=== PATIENT | female | born 1995 | race Caucasian/White ===

== ENCOUNTER 2018-08-12 17:06 | Inpatient (IN) | payer OTHER, MEDICAID ==
[~2018-08-12] VITALS: Ht 175.3 cm; Wt 70.3 kg
[~2018-08-12 17:06] MED LIST: ACE3 PO; ACET-1966 PO; Benzocaine 60 ML TP; CALC-521 PO; DOCU240C67 PO; FAMO20TA28 PO; IBUP800T37 PO; Lanolin TP; PNV91TAB3; TUCKS TOP
[2018-08-12] MEDS ORDERED: FAMOTIDINE(*) 20MG/50ML PREMIX 50 ML IVPB PRN (17:09)
[2018-08-12] MEDS ORDERED: DLR(*) 1000 ML BAG 1,000 ML IV SCH (17:09)
[2018-08-12] MEDS ORDERED: OXYTOCIN 30 UNIT/D5LR 500 ML 500 ML IV PRN (17:09)
[2018-08-12] MEDS ORDERED: LIDOCAINE 1% LOCAL 300 MG/30ML INJ PRN (17:10)
[2018-08-12] MEDS ORDERED: FLUSH 10 ML SYR IVP PRN (17:10)
[2018-08-12] MEDS ORDERED: METOCLOPRAMIDE 10 MG/2 ML SDV IVP PRN (17:10)
[2018-08-12] MEDS ORDERED: fentaNYL CITR 100 MCG/2 ML AMP IVP PRN (17:10)
[2018-08-12] MEDS ORDERED: LIDOCAINE/SOD BICARB 8.4% SYR SC PRN (17:10)
--- NOTE | 2018-08-12 17:21 | History & Physical ---
History of Present Illness Age of Patient: 23 : 2 Para or TPAL: 1001 EDC per LMP: Aug 26, 2018 EDC per U/S: Aug 26, 2018 Estimated Gestational Age: 38.0 Chief Complaint painful uterine contractions History of Present Illness Ms. Soares is a 23yo at 38.0 with YADI of 08/26/2018, based on first trimester ultrasound who presents to labor and delivery with complaint of painful uterine contractions. She reports normal movements, denies leakage of fluid or vaginal bleeding. Denies GUZMÁN, RUQ pain, nausea/emesis, scotomata. No other complaints. Desires epidural. Antepartum Issues: 1. Rubella Equivocal, plans for PP vaccine 2. declined HIV testing antepartum 3. GBS negative History Patient's Blood Type: A Positive Rubella Status: Equivocal Group B Strep Screen: Negative Miscellaneous Screens/Cultures: HIV declined, Hep B SAg neg Obstetrical History: 04/2015 FT , female, 6'6", vaginal delivery, uncomplicated Past Medical History: 1. hayfever 2. 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 h/o LGSIL pap, HPV Allergies: Coded Allergies: No Known Drug Allergies (Unverified , 05/21/15) Social History: In a supportive relationship with father of the baby. Denies interpersonal violence. 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 No current T/E/D. Med Rec Home Meds Active Scripts [Lanolin] 7 GM OINT No Conflict Check, 0 GM TP PRN PRN for DISCOMFORT FOR NURSING MOTHERS for 10 Days, TUBE Prov:RY CARLSON MD 05/23/15 Ibuprofen (IBUPROFEN) 800 Mg Tablet, 800 MG PO Q8H@07,15,23 for 10 Days, TAB Prov:RY CARLSON MD 05/23/15 Glycerin/Witch Cyndi [place] (PREPARATION H) 1 Pkg Pad, 0 PKG TOP PRN PRN for PAIN for 10 Days, PAD Prov:RY CARLSON MD 05/23/15 Docusate Calcium (DOCUSATE CALCIUM) 240 Mg Capsule, 240 MG PO BID for 10 Days, CAPSULE Prov:RY CARLSON MD 05/23/15 [Benzocaine] 60 ML AERS No Conflict Check, 0 ML TP PRN PRN for PAIN for 10 Days, BOTTLE Prov:RY CARLSON MD 05/23/15 Acetaminophen/Codeine (TYLENOL #3 (OR EQUIV)) 1 Ea Tab, 1-2 EACH PO Q4H PRN for PAIN, #10 TAB Prov:RY CARLSON MD 05/23/15 Reported Medications Acetaminophen (TYLENOL) 325 Mg Tablet, 325 MG PO 05/21/15 Pnv95/Ferrous Fumarate/FA ( Caplet) 28 Mg Iron-800 Mcg Tablet 05/21/15 Review of Systems Constitutional: No Fever, No Weight Loss, No Weight Gain, No Chills, No Night Sweats, No Other Neurological: No Syncope, No Confusion, No Weakness, No Dizziness, No Slurred Speech, No Other Eyes: No Vision Change, No Loss of Vision, No Photophobia, No Other ENT: No Hearing Loss, No Sinus Congestion, No Sore Throat, No Ear Ache, No Tinnitus, No Other Cardiovascular: No Chest Pain, No Palpitations, No Orthostatic Hypotension, No Other Respiratory: No Shortness of Breath, No Cough, No Wheezing, No Other Gastrointestinal: No Nausea, No Vomiting, No Diarrhea, No Dysphagia, No Constipation, No Early Satiety, No Hematemesis, No Hematochezia, No Melena, No Abdominal Pain, No Other Genitourinary: No Dysuria, No Hematuria, No Urinary Incontinence, No Other Musculoskeletal: No Pain, No Sprain, No Strain, No Impaired Mobility, No Other Psychiatric: No Depression, No Anxiety, No Other Exam General Exam Vital Signs Initial BP 148/71, repeat 140/74, pulse 90, )2 saturation 96% RA General Apperance: Alert/Awake/No Acute Distress Neuro: No Gross deficits Cardiovascular: Regular Rate and Rhythm Respiratory: No Respiratory Distress, Clear to Auscultation Abdomen: Soft, Non-Tender, Non-Distended, Gravid - Non-Tender, Pelvis Non- Contracted Musculoskeletal: No Weakness/Pain Extremities: No Cyanosis,Clubbing or Edema Integumentary: Skin Intact without Lesions or Rash Psychological: Alert & Oriented X3, Appropriate Mood & Affect Vaginal Discharge/Fluid?: Other (intact) Cervical Dialation: 7 Cervical Effacement (%): 90 Cervical Consistency: Soft Cervical Position: Anterior Station: 0 Presentation: Vertex Uterine Contractions(Q min): 3 Uterine Contraction Strength: Moderate UC Resting Tone: Soft Fetus Feeling Movement?: Yes Estimated Weight(grams): 3000 Heart Tones: 130 Heart Tone Variabilty: Moderate FHT Accelerations: 15X15 FHT Decelerations: Early, Variable FHT Category: II Medical Decision Making Pre-Admit Course Medical Record Review: Yes VTE Prophylasis: Adult Deep Vein Thrombosis/Pulmonary: No Pharmacological Contraindicati: Surgical Contraindication Mechanical Contraindications: Pt at Low Risk for VTE Assessment and Plan Hospital Day: 1 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 and maternal status overall reassuring. GBS negative. Rubella non-immune. History of post- depression after last delivery. Initial blood pressure 148/70, no symptoms. Will monitor. -admit in labor -cbc, blood type and screen, HIV -CEFM/toco for epidural -anticipate -MMR vaccine pp -monitor for ss/sx of post- depression MATILDA IBARRA MD Aug 12, 2018 17:21
[2018-08-12 17:25] VITALS: BP 148/75; Ht 175.3 cm; Wt 70.3 kg
[2018-08-12] MEDS: LR(*) 1000 ML BAG 1,000 ML IV SCH ×2 (17:35→18:02)
[2018-08-12] MEDS ORDERED: LIDO/EPI 2% MPF 1:200,000 20ML EPI PRN (17:45)
[2018-08-12] MEDS ORDERED: fentaNYL CITR 100 MCG/2 ML AMP IT PRN (17:45)
[2018-08-12] MEDS ORDERED: BUPIVACAINE 0.5% INJ 30ML VIAL EPI PRN (17:45)
[2018-08-12] MEDS ORDERED: LIDOCAINE/PF 2% 200MG/10ML AMP 200 MG/10 ML AMPUL EPI PRN (17:45)
[2018-08-12] MEDS ORDERED: FENTANYL/ROPIVACAINE 100 ML BAG EPI PRN (17:45)
[2018-08-12] MEDS ORDERED: BUPIVACAINE 0.25% MPF INJ EPI PRN (17:45)
[2018-08-12 17:48] LABS: PLATELET COUNT, AUTOMATED 165 K/uL (150-450)
[2018-08-12] MEDS ORDERED: BENZOCAINE 20% 60 ML BTL TP PRN (18:35)
[2018-08-12] MEDS ORDERED: GLYCERIN/WITCH HAZEL LEAF 1 PK TP PRN (18:35)
[2018-08-12] MEDS ORDERED: MAGNESIUM HYDROXIDE* 30ML UDCP PO PRN (18:35)
[2018-08-12] MEDS ORDERED: ACETAMINOPHEN 325 MG TAB PO PRN (18:35)
[2018-08-12] MEDS ORDERED: HYDROmorphone HCL 2 MG TAB PO PRN (18:35)
[2018-08-12] MEDS ORDERED: LANOLIN OINT 7 GM TUBE TP PRN (18:35)
[2018-08-12] MEDS ORDERED: HYDROCORTISONE 2.5% CR 30GM TB PR PRN (18:35)
--- NOTE | 2018-08-12 18:45 | OB Delivery Note ---
Delivery Note Vaginal Delivery Type: Spont. Vaginal Delivery Delivery Date: Aug 12, 2018 Delivery Time: 18:23 Estimated Gestational Age(wks): 38.0 Length of Labor Stage I (hrs): 3 Length of Labor Stage II (hrs): 0.2 Labor Stage III (minutes): 5 Delivery Anesthesia: Other (intrathecal) Sex: Male Infant Weight (gms): 3010 Apgars: 1 Minute (9), 5 Minute (9) Repair Needed: Other (none) Estimated Blood Loss: 300 Delivery Complications: Precipitous Notes: Ms. Soares presented to labor and delivery in active labor, 7cm dilated, 0 station, with reassuring tracing. She received an intrathecal block for pain control. She progressed to fully dilated and +2 station at 18:13. tracing remained reassuring. She underwent AROM for clear fluid at 18:16 and delivered a vigorous male infant over an intact perineum at 18:23. Infant was in the CISCO position. A nuchal cord was noted and reduced at the perineum. The infants mouth and nares were suctioned and he was handed to his mother. After cord pulsations ceased, about 60 seconds, a portion of cord blood was obtained as per protocol. The cord was doubly clamped and cut. Post- pitocin was started and the placenta was delivered spontaneously and intact. The uterus contracted well with pitocin and massage. Estimated blood loss was 300cc. The vulva, vagina and perineum were examined and no lacerations were noted. Infant apgars were 9, and 9. Operations Research Group Manager in Attendence: MATILDA Gan MD Aug 12, 2018 18:45
[2018-08-12] MEDS: IBUPROFEN 800 MG TAB PO SCH (19:25)
[2018-08-12 19:30] VITALS: BP 134/61
--- NOTE | 2018-08-12 19:38 | Anesthesia OB Pre-Anes Eval ---
History of Present Illness Anesthesia Start Date: Aug 12, 2018 Anesthesia Start Time: 17:59 OB Anesthesia Diagnosis: spontaneous labor EDC: Aug 26, 2018 : 2 Para: 1 Pain Ratin Result Diagram: 08/12/18 1735 Height (Inches): 69 Weight (Pounds): 161 Past Medical History Medical History: no pertinent history Surgical History: no surgical history Previous Anesthesia: epidural Attended Childbirth Classes?: No Hx Anesthesia Reactions: No Hx Family Anesthesia Reaction: No Home Meds Active Scripts [Lanolin] 7 GM OINT No Conflict Check, 0 GM TP PRN PRN for DISCOMFORT FOR NURSING MOTHERS for 10 Days, TUBE Prov:RY CARLSON MD 05/23/15 Ibuprofen (IBUPROFEN) 800 Mg Tablet, 800 MG PO Q8H@07,15,23 for 10 Days, TAB Prov:RY CARLSON MD 05/23/15 Glycerin/Witch Cyndi [place] (PREPARATION H) 1 Pkg Pad, 0 PKG TOP PRN PRN for PAIN for 10 Days, PAD Prov:RY CARLSON MD 05/23/15 Docusate Calcium (DOCUSATE CALCIUM) 240 Mg Capsule, 240 MG PO BID for 10 Days, CAPSULE Prov:RY CARLSON MD 05/23/15 [Benzocaine] 60 ML AERS No Conflict Check, 0 ML TP PRN PRN for PAIN for 10 Days, BOTTLE Prov:RY CARLSON MD 05/23/15 Acetaminophen/Codeine (TYLENOL #3 (OR EQUIV)) 1 Ea Tab, 1-2 EACH PO Q4H PRN for PAIN, #10 TAB Prov:RY CARLSON MD 05/23/15 Reported Medications Acetaminophen (TYLENOL) 325 Mg Tablet, 325 MG PO 05/21/15 Pnv95/Ferrous Fumarate/FA ( Caplet) 28 Mg Iron-800 Mcg Tablet 05/21/15 Allergies: Coded Allergies: No Known Drug Allergies (Unverified , 05/21/15) Anesthesia OB ROS Neurological: No migraines/headaches, No seizures, No neuropathy, No other Eyes ROS: contacts in ENT: Denies Tooth caps, Denies Loose teeth, Denies Chipped teeth, Denies Dentures, Denies Bridges, Denies Retainers, Denies Veneers, Denies Implants, Denies Tongue ring, Denies Other Pulmonary: No asthma, No smoker (pks/day/yrs), No other Airway Class: ll Cardiovascular ROS: No edema, No arrhythmia, No other Last Solids Date: Aug 12, 2018 Last Solids Time: 14:00 ROS: No Herpes, No STD(s), No Liver Disease, No Renal Disease, No Other Endocrine ROS: No diabetes, No gestational diabetes, No thyroid disorder, No other Musculoskeletal ROS: No low back pain, No low back injury, No scoliosis, No other ASA Classification: 2 Assessment and Plan Anesthesia Plan: SAB Assessment Spontaneous labor. 7 cm dilated on first vaginal exam. Patient is my daughter. Dr. Marcos MD notified. Decision made to place SAB as patient progressing rapidly and has a history or a precipitous labor with first baby. Anesthesia Stop Day: Aug 12, 2018 Anesthesia Stop Time: 18:08 Condition Intrathecal set up quickly, excellent pain relief. HALEY GUAMAN CRNA Aug 12, 2018 19:38
--- NOTE | 2018-08-12 19:41 | Procedure Note ---
Anesthetic Placement Note Anesthesia Plan: SAB Permit for Anesthesia Signed: Yes Anesthesia Technique: Patient Sitting Anesthesia Prep: Chlorhexidine Interspace: L 4-5 Local Anesthetic: 1% Lidocaine Anesthesia Needle: 25g Pencan w/Introducer Anesthesia Attempts: 1 Epidural Needle Placement: CSF, Blood Intrathecal Needle: Other Cerebral Spinal Fluid: Yes, Clear Comment: Spinal tray with 25 gauge Pencan used for placement. Anesthesia Medications: Intrathecal Dose: mcg Fentanyl, mg Spinal Bupivicaine, Time Comment: 10 mcg fentanyl and 2.5 mg 0.25% bupivacaine, both preservative free. HALEY GUAMAN CRNA Aug 12, 2018 19:41
[2018-08-12] MEDS ORDERED: LR(*) 1000 ML BAG 1,000 ML ONE (20:18)
[2018-08-12 20:34] VITALS: BP 123/58
[2018-08-12] MEDS: DOCUSATE CALCIUM 240 MG CAP PO SCH (21:52)
[2018-08-13 00:33] VITALS: BP 103/53
[2018-08-13] MEDS: IBUPROFEN 800 MG TAB PO SCH ×3 (03:24→19:24)
[2018-08-13 04:30] VITALS: BP 113/67
[2018-08-13 07:25] VITALS: BP 116/70
[2018-08-13] MEDS ORDERED: LR(*) 1000 ML BAG 1,000 ML ONE (08:18)
[2018-08-13] MEDS ORDERED: INFLUENZA VIRUS VAC 0.5ML SYR IM ONLY ONE (09:00)
[2018-08-13] MEDS ORDERED: MEASLES,MUMP,RUBELLA VAC 0.5ML SUBQ ONE (09:00)
[2018-08-13] MEDS ORDERED: DIPHTH/TETANUS/ACEL. PERTUSSIS IM ONLY ONE (09:00)
[2018-08-13] MEDS: DOCUSATE CALCIUM 240 MG CAP PO SCH (09:34)
--- NOTE | 2018-08-13 10:04 | OB/GYN Progress Note ---
OB Subjective Progress Notes Subjective Ms. Soares reports that overall she is feeling well. She reports that her perineum is not significantly sore. She states that her bleeding is minimal, like a period. She is , and reports that Ron's () latch is good, but he fell asleep shortly after starting nursing through the night. She denies ss/sx of post- depression. No fevers/chills, no nausea emesis. No headache. GI: POS Flatus; NEG Nausea, NEG Vomiting, NEG Bowel Movement : Voiding Well, Vaginal Bleeding, Moderate Pain: Mild, Tolerating PO Pain Meds Neurological: No Headache, No Other Eyes: No Visual Disturbances OB Objective Physical Exam Vital Signs Date Time Temp Pulse Resp B/P (MAP) Pulse Ox O2 Delivery O2 Flow Rate FiO2 08/13/18 04:30 98.1 67 113/67 (82) Room Air 08/13/18 00:33 16 08/12/18 19:30 95 Intake and Output 08/13/18 07:00 Intake Total 700 ml Output Total 900 ml Balance -200 ml Intake IV Total 700 ml Output Urine Total 900 ml # Voids 2 General Appearance: Alert/Awake/No Acute Distress Neurological: No Gross deficits Respiratory: No Respiratory Distress, Clear to Auscultation Abdomen: Soft, Non-Tender, Non-Distended, Fundus Firm, Non-Tender Extremities: No Cyanosis,Clubbing or Edema Integumentary: Skin Intact without Lesions or Rash Psychological: Alert & Oriented X3, Appropriate Mood & Affect Result Diagram: 08/13/18 0607 Assessment and Plan Post Day: 1 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 Doing well. . Mood good. Rubella non-immune. -routine PP care - support -MMR vaccine prior to discharge -monitor for ss/sx of post- depression -anticipate discharge home this evening, depending on pediatric disposition MATILDA IBARRA MD Aug 13, 2018 10:04
[2018-08-13] MEDS ORDERED: DOCU240C67 PO (10:08)
[2018-08-13] MEDS ORDERED: IBUP800T37 PO (10:08)
[2018-08-13 12:05] VITALS: BP 128/95
[2018-08-13] MEDS ORDERED: Benzocaine 60 ML TP (13:18)
--- NOTE | 2018-08-13 13:21 | OB/GYN Discharge Summary ---
Discharge Summary Reason for Hosp/Final Diag: (1) Active labor at term Status: Resolved (2) care and examination immediately after delivery Status: Acute Hospital Course & Plan: 23yo PPD 1 s/p . Doing well. . Mood good. Rubella non-immune. -routine PP care - support -MMR vaccine prior to discharge -monitor for ss/sx of post- depression -meeting all discharge criteria, will allow discharge to home or rooming in status this evening, 24 hours pp Lates Vital Signs Vital Signs Date Time Temp Pulse Resp B/P (MAP) Pulse Ox O2 Delivery O2 Flow Rate FiO2 08/13/18 12:05 97.7 77 16 128/95 (106) 08/13/18 04:30 Room Air 08/12/18 19:30 95 Weight (Pounds): 155 Result Diagram: 08/13/18606 Condition: Improved Discharge: Home, Self [facility] Meds Active Scripts [Benzocaine 20% 60 Ml Btl] 60 ML AERS No Conflict Check, 1 ML TP PRN PRN for P AIN for 14 Days, #1 BOTTLE 1 Refill Prov:MATILDA IBARRA MD 08/13/18 Ibuprofen (IBUPROFEN) 800 Mg Tablet, 800 MG PO Q8H@0330,1130,1930 for 28 Days, #90 TAB 1 Refill Prov:MATILDA IBARRA MD 08/13/18 Docusate Calcium (DOCUSATE CALCIUM) 240 Mg Capsule, 240 MG PO BID for 28 Days, #60 CAPSULE 1 Refill Prov:MATILDA IBARRA MD 08/13/18 [Lanolin] 7 GM OINT No Conflict Check, 0 GM TP PRN PRN for DISCOMFORT FOR NURSING MOTHERS for 10 Days, TUBE Prov:RY CARLSON MD 05/23/15 Ibuprofen (IBUPROFEN) 800 Mg Tablet, 800 MG PO Q8H@07,15,23 for 10 Days, TAB Prov:RY CARLSON MD 05/23/15 Glycerin/Witch Cyndi [place] (PREPARATION H) 1 Pkg Pad, 0 PKG TOP PRN PRN for PAIN for 10 Days, PAD Prov:RY CARLSON MD 05/23/15 Docusate Calcium (DOCUSATE CALCIUM) 240 Mg Capsule, 240 MG PO BID for 10 Days, CAPSULE Prov:RY CARLSON MD 05/23/15 [Benzocaine] 60 ML AERS No Conflict Check, 0 ML TP PRN PRN for PAIN for 10 Days, BOTTLE Prov:RY CARLSON MD 05/23/15 Acetaminophen/Codeine (TYLENOL #3 (OR EQUIV)) 1 Ea Tab, 1-2 EACH PO Q4H PRN for PAIN, #10 TAB Prov:RY CARLSON MD 05/23/15 Reported Medications Acetaminophen (TYLENOL) 325 Mg Tablet, 325 MG PO 05/21/15 Pnv95/Ferrous Fumarate/FA ( Caplet) 28 Mg Iron-800 Mcg Tablet 05/21/15 Follow up with: Dr. Terry [phone] Follow up in: 6 wks PP or PO Discharge Diet: As Tolerates Discharge Activity: Pelvic Rest MATILDA IBARRA MD Aug 13, 2018 13:21
[2018-08-13 15:20] VITALS: BP 122/65
--- NOTE | 2018-08-13 16:09 | Anesthesia Post Eval Note ---
Anesthesia Post Eval Note Pt able to participate in Eval: Yes Cardiovascular Status: Satisfactory Respiratory Status: Satisfactory Pain Managment: Satisfactory PO Nausea/Vomiting: Satisfactory Temperature Management: Satisfactory Mental Status: Satisfactory Post-Op Hydration Status: Satisfactory Anesthesia Type: SAB Anesthesia Tolerance: Intrathecal provided excellent coverage. Was able to ambulate 3 hours after intrathecal dose. No post procedure complications. HALEY GUAMAN CRNA Aug 13, 2018 16:09
== END 2018-08-13 19:36 | disposition home or self-care (01) | DRG 807 ==
LOC: OB 17:06
PROVIDERS: ADMIT Obstetrics & Gynecology; ATTEND Obstetrics & Gynecology
PROC: 10E0XZZ Delivery of Products of Conception, External Approach (ICD-10-PCS; principal; 2018-08-12)
PROC: 10907ZC Drainage of Amniotic Fluid, Therapeutic from Products of Conception, Via Natural or Artificial Opening (ICD-10-PCS; 2018-08-12)
DX: O62.3 Precipitate labor (principal); Z37.0 Single live birth; O69.81X0 Labor and delivery complicated by cord around neck, without compression, not applicable or unspecified; Z3A.38 38 weeks gestation of pregnancy
CPT/HCPCS: 36415; 85025; 85027; 86703; 86850; 86900; 86901; J2590; J7120